=== PATIENT | female | born 1980 | race Caucasian/White ===

== ENCOUNTER 2018-04-02 20:09 | Emergency (ER) | payer OTHER ==
[~2018-04-02] VITALS: Ht 170.2 cm; Wt 63.5 kg
[~2018-04-02 20:09] MED LIST: ABILIFY 2 MG2 M1; ACYCLOVIR 200200 MG; ANTIVERT25 MG PO; ASPIR-TRIN325 MG PO; CELEXA 10 MG TA10 M1; FLEXERIL PO; MUCINEX600 MG PO; OLEPTRO ER150 MG; PERCOCET 5-3251 EACH PO; SYNTHROID100 MCG; TUMS PO; VALIUM2 MG PO; XANAX 0.25 MG0.25 MG; ZOFRAN ODT4 MG PO; ZYRTEC10 M2
[2018-04-02 20:30] LABS: URINE BILIRUBIN NEGATIVE (Negative); URINE BLOOD 1+ (Negative); URINE CLARITY CLEAR; URINE COLOR YELLOW; URINE GLUCOSE-RANDOM* NEGATIVE (Negative); URINE KETONES NEGATIVE (Negative); URINE NITRITE-REFLEX NEGATIVE (Negative); URINE PROTEIN (DIPSTICK) NEGATIVE (Negative); URINE SPECIFIC GRAVITY 1.025 (1.005-1.035); URINE UROBILINOGEN 0.2 E.U./dl (0.2-1.0)
[2018-04-02 20:31] LABS: URINE LEUKOCYTES-REFLEX 1+ (Negative)
[2018-04-02 20:38] LABS: SQUAMOUS >10 Many /LPF (0-3)
[2018-04-02 20:39] LABS: CASTS None Seen /LPF (None Seen); MUCUS >6 Heavy strn/LPF (None Seen); URINE RBC 3-10 Few /HPF (0-2)
[2018-04-02 20:40] LABS: BACTERIA-REFLEX >30 Many /HPF (None Seen); CRYSTALS None Seen /LPF (None Seen)
[2018-04-02 21:04] LABS: CALCIUM 9.4 mg/dL (8.5-10.1); CREATININE 1.1 mg/dL (0.6-1.0); POTASSIUM 3.6 mmol/L (3.5-5.1)
[2018-04-02 21:09] LABS: ALBUMIN 3.5 g/dL (3.4-5.0); TOTAL BILIRUBIN 0.3 mg/dL (<0.1-1.0); TOTAL PROTEIN 7.4 g/dL (6.4-8.2)
[2018-04-02 22:00] LABS: HEMATOCRIT 36.6 % (37.0-47.0); HEMOGLOBIN 12.8 gm/dL (12.0-15.0); MCH 32.4 pg (26.0-34.0); MCHC 35.1 g/dL (28.0-37.0); MCV 92.2 fL (80.0-100.0); RBC 3.97 mil/uL (4.20-5.00); WBC 13.3 thou/uL (4.0-11.0)
[2018-04-02 22:06] LABS: URINE BILIRUBIN NEGATIVE (Negative); URINE BLOOD 1+ (Negative); URINE CLARITY CLEAR; URINE COLOR YELLOW; URINE GLUCOSE-RANDOM* NEGATIVE (Negative); URINE KETONES NEGATIVE (Negative); URINE NITRITE-REFLEX NEGATIVE (Negative); URINE PROTEIN (DIPSTICK) NEGATIVE (Negative); URINE UROBILINOGEN 0.2 E.U./dl (0.2-1.0)
[2018-04-02 22:16] LABS: URINE LEUKOCYTES-REFLEX TRACE (Negative)
[2018-04-02 22:20] LABS: BACTERIA-REFLEX 1-9 Few /HPF (None Seen); CASTS None Seen /LPF (None Seen); CRYSTALS None Seen /LPF (None Seen); MUCUS None Seen strn/LPF (None Seen); SQUAMOUS 0-3 Few /LPF (0-3); URINE RBC 0-2 Rare /HPF (0-2); URINE WBC-REFLEX 0-5 Rare /HPF (0-5)
[2018-04-02] MEDS ORDERED: KEFLEX500 M1 PO (22:26)
[2018-04-02 22:56] VITALS: BP 112/69
[2018-04-04 15:09] LABS: NEISSERIA GONORRHEA-PCR Negative (Negative)
== END 2018-04-02 23:25 | disposition home or self-care (01) ==
LOC: ER 20:09
PROVIDERS: Emergency Medicine
DX: O20.0 Threatened abortion (principal); O23.41 Unspecified infection of urinary tract in pregnancy, first trimester; J45.909 Unspecified asthma, uncomplicated; K58.9 Irritable bowel syndrome, unspecified; Z87.891 Personal history of nicotine dependence; Z88.5 Allergy status to narcotic agent; Z88.8 Allergy status to other drugs, medicaments and biological substances; Z91.041 Radiographic dye allergy status; Z91.040 Latex allergy status; Z3A.01 Less than 8 weeks gestation of pregnancy

== ENCOUNTER 2018-11-16 20:16 | Emergency (ER) | payer OTHER ==
[~2018-11-16] VITALS: Ht 170.2 cm; Wt 59.0 kg
[~2018-11-16 20:16] MED LIST changes: +KEFLEX500 M1 PO
[2018-11-16 20:52] LABS: BE(vivo) -0.7 mmol/L (-2 to +3); HCO3 23.2 mmol/L (22.0-26.0); PCO2 VENOUS 36.3 mmHg (41.0-51.0); PO2 VENOUS 183.5 mmHg (35.0-45.0)
[2018-11-16] MEDS ORDERED: ATIVAN2 MG PO (21:06)
[2018-11-16 21:21] VITALS: BP 132/84
== END 2018-11-16 21:22 | disposition home or self-care (01) ==
LOC: ER 20:16
PROVIDERS: Emergency Medicine
DX: J68.9 Unspecified respiratory condition due to chemicals, gases, fumes and vapors (principal); F45.8 Other somatoform disorders; F43.10 Post-traumatic stress disorder, unspecified; F41.8 Other specified anxiety disorders; J45.909 Unspecified asthma, uncomplicated; Z87.891 Personal history of nicotine dependence; Z88.5 Allergy status to narcotic agent; Z88.8 Allergy status to other drugs, medicaments and biological substances; Z91.040 Latex allergy status

== ENCOUNTER 2018-12-18 09:17 | Emergency (ER) | payer OTHER ==
[~2018-12-18] VITALS: Ht 170.2 cm; Wt 56.7 kg
[~2018-12-18 09:17] MED LIST changes: +ATIVAN2 MG PO
[2018-12-18 09:18] VITALS: BP 131/87
[2018-12-18] MEDS ORDERED: BUTALB-APAP-CA1 EACH PO (10:46)
[2018-12-18] MEDS ORDERED: BENTYL 20 MG TA20 M1 PO (10:46)
[2018-12-18] MEDS ORDERED: SYNTHROID112 MC1 PO (10:46)
[2018-12-18] MEDS ORDERED: VENTOLIN HFA 1818 GM INH (10:59)
== END 2018-12-18 10:20 | disposition home or self-care (01) ==
LOC: ER 09:17
DX: S09.8XXA Other specified injuries of head, initial encounter (principal); F41.9 Anxiety disorder, unspecified; R42 Dizziness and giddiness; M54.2 Cervicalgia; J45.909 Unspecified asthma, uncomplicated; K58.9 Irritable bowel syndrome, unspecified; Z87.891 Personal history of nicotine dependence; Z88.5 Allergy status to narcotic agent; Z88.8 Allergy status to other drugs, medicaments and biological substances; Z91.041 Radiographic dye allergy status; Z91.040 Latex allergy status; W22.8XXA Striking against or struck by other objects, initial encounter; Y92.89 Other specified places as the place of occurrence of the external cause; Y93.89 Activity, other specified; Y99.8 Other external cause status

== ENCOUNTER 2018-12-21 17:00 | Emergency (ER) | payer OTHER ==
[~2018-12-21] VITALS: Ht 170.2 cm; Wt 56.7 kg
[~2018-12-21 17:00] MED LIST changes: +BENTYL 20 MG TA20 M1 PO; +BUTALB-APAP-CA1 EACH PO; +SYNTHROID112 MC1 PO; +VENTOLIN HFA 1818 GM INH
[2018-12-21] MEDS ORDERED: ANTIVERT25 MG PO (18:05)
[2018-12-21] MEDS ORDERED: ZOFRAN ODT4 MG PO (18:05)
[2018-12-21 19:36] VITALS: BP 104/64
== END 2018-12-21 19:51 | disposition home or self-care (01) ==
LOC: ER 17:00
DX: F07.81 Postconcussional syndrome (principal); J45.909 Unspecified asthma, uncomplicated; Z88.5 Allergy status to narcotic agent; Z91.040 Latex allergy status; Z91.041 Radiographic dye allergy status; Z87.891 Personal history of nicotine dependence